=== PATIENT | female | born 1975 | race Caucasian/White ===

== ENCOUNTER → 2016-02-29 | Outpatient (REF) | payer OTHER ==
[2016-02-29 11:33] LABS: BASO % 0.2 % (0.0-1.0); EOS # 0.1 K/mm3 (0.0-0.50); EOS % 1.7 % (0.0-3.0); LARGE UNSTAINED CELL # 0.1 K/mm3 (0.0-0.4); LARGE UNSTAINED CELL % 1.1 % (0.0-4.0); LYMPH # 1.1 K/mm3 (1.5-4.5); LYMPH % 14.3 % (24.0-44.0); MEAN CORPUSCULAR VOLUME 85.8 fl (80.0-96.0); MONO # 0.3 K/mm3 (0.0-0.8); MONO % 3.3 % (0.0-5.0); NEUTROPHILS # 6.1 K/mm3 (1.8-7.7); NEUTROPHILS % 79.4 % (36.0-66.0); PLATELET COUNT, AUTOMATED 232 k/mm3 (150-450); RED CELL DISTRIBUTION WIDTH 13.1 % (11.5-14.5); RETIC HEMOGLOBIN CONTENT CHr 31.8 PG (24-36); RETICULOCYTE ABSOLUTE ADVIA212 95 x10(9)/L (17-77); WHITE BLOOD COUNT 7.6 K/mm3 (4.0-10.0)
[2016-02-29 11:40] LABS: VITAMIN B12 LEVEL 1333 PG/ML (247-911)
[2016-02-29 11:41] LABS: FOLATE 12.1 NG/ML (>5.4)
[2016-02-29 12:10] LABS: ALBUMIN 3.8 GM/DL (3.2-5.2); ALBUMIN/GLOBULIN RATIO 1.15 (1.00-1.93); ALKALINE PHOSPHATASE 97 U/L (45-117); ALT/SGPT 21 U/L (12-78); ANION GAP 9 MEQ/L (8-16); AST/SGOT 14 U/L (15-37); BILIRUBIN,TOTAL 0.4 MG/DL (0.2-1.0); BLOOD UREA NITROGEN 14 MG/DL (7-18); CALCIUM LEVEL 8.5 MG/DL (8.5-10.1); CARBON DIOXIDE LEVEL 25 MEQ/L (21-32); CHLORIDE LEVEL 108 MEQ/L (98-107); CHOLESTEROL LEVEL 129 MG/DL (<200); CREATININE FOR GFR 0.59 MG/DL (0.55-1.02); FERRITIN 19 NG/ML (8-252); GLOMERULAR FILTRATION RATE > 60.0 (>60); GLUCOSE, FASTING 89 MG/DL (70-105); POTASSIUM SERUM 3.9 MEQ/L (3.5-5.1); SODIUM LEVEL 142 MEQ/L (136-145); TOTAL PROTEIN 7.1 GM/DL (6.4-8.2); TRIGLYCERIDES LEVEL 83 MG/DL (<150)
== END | disposition home or self-care (01) ==
LOC: M SFHCCLAY 07:11
PROVIDERS: ATTEND Nurse Practitioner Family
DX: Z98.84 Bariatric surgery status (principal); Z13.6 Encounter for screening for cardiovascular disorders; E55.9 Vitamin D deficiency, unspecified

== ENCOUNTER 2019-10-08 08:35 | Outpatient (CLI) | payer OTHER ==
[~2019-10-08] VITALS: Ht 154.9 cm; Wt 88.4 kg
[~2019-10-08 08:35] MED LIST: IRON SUCROSE 25 MG in NS 25 ML IV ONE
[2019-10-08 08:53] VITALS: BP 134/73
[2019-10-08] MEDS ORDERED: ZOLO100T PO (09:05)
[2019-10-08] MEDS ORDERED: ZYRTTAB8 PO (09:05)
[2019-10-08] MEDS ORDERED: IRON SUCROSE 475 MG in NS 250 ML IV ONE (09:30)
== END 2019-10-08 13:30 | disposition home or self-care (01) ==
LOC: M INFU 08:35
PROVIDERS: ATTEND Nurse Practitioner Family
DX: D50.9 Iron deficiency anemia, unspecified (principal)
CPT/HCPCS: 96365; 96366; J1756

== ENCOUNTER 2019-11-20 10:29 | Outpatient (CLI) | payer OTHER ==
[~2019-11-20] VITALS: Ht 152.4 cm; Wt 87.2 kg
[~2019-11-20 10:29] MED LIST changes: +IRON SUCROSE 475 MG in NS 250 ML IV ONE; +ZOLO100T PO; +ZYRTTAB8 PO
[2019-11-20 10:40] VITALS: BP 127/62
[2019-11-20] MEDS: IRON SUCROSE 25 MG in NS 25 ML IV ONE (11:01)
[2019-11-20 11:20] VITALS: BP 109/98
[2019-11-20] MEDS: IRON SUCROSE 475 MG in NS 250 ML IV ONE (12:07)
[2019-11-20 12:30] VITALS: BP 151/84
[2019-11-20 13:45] VITALS: BP 120/76
[2019-11-20 15:30] VITALS: BP 120/79
== END 2019-11-20 15:35 | disposition home or self-care (01) ==
LOC: M INFU 10:29
PROVIDERS: ATTEND Nurse Practitioner Family
DX: D50.9 Iron deficiency anemia, unspecified (principal)
CPT/HCPCS: 96365; 96366; J1756